=== PATIENT | male | born 2000 | race Caucasian/White ===

== ENCOUNTER 2023-10-18 13:24 | Emergency (ER) | payer OTHER ==
[~2023-10-18] VITALS: Ht 172.7 cm; Wt 113.4 kg
[2023-10-18] MEDS ORDERED: LIDOCAINE 1% INJ 50 ML MDV IJ ONE (15:17)
[2023-10-18] MEDS ORDERED: IBUP-1955 PO (15:39)
[2023-10-18] MEDS ORDERED: SULF1TAB48 PO (15:39)
[2023-10-18] MEDS ORDERED: CEPH500C2 PO (15:39)
[2023-10-18] MEDS: LIDOCAINE 1% INJ 50 ML MDV IJ ONE (15:40)
[2023-10-18 15:53] VITALS: BP 140/84; TEMP 98.2; O2SAT 99
== END 2023-10-18 15:54 | disposition home or self-care (01) ==
LOC: ER 13:29
DX: L05.91 Pilonidal cyst without abscess (principal)
CPT/HCPCS: 10080; 99283; J3490; A6403; A6407